=== PATIENT | male | born 1975 | race Caucasian/White ===

== ENCOUNTER 2021-06-03 07:57 | Emergency (ER) | payer OTHER ==
[~2021-06-03] VITALS: Ht 200.7 cm; Wt 115.7 kg
[2021-06-03] MEDS ORDERED: ASPIRIN EC81 M1 PO (08:11)
[2021-06-03] MEDS ORDERED: OMEPRAZOLE 20 M20 M1 PO (08:12)
[2021-06-03] MEDS ORDERED: CEPHALEXIN500 MG PO (08:37)
[2021-06-03] MEDS ORDERED: HYDROCODON-ACE1 EAC7 PO (08:37)
[2021-06-03] MEDS ORDERED: BACTRIM DS TAB1 EACH PO (08:37)
[2021-06-03 08:43] VITALS: BP 139/83
== END 2021-06-03 08:44 | disposition home or self-care (01) ==
LOC: M.ERS 07:57
DX: L03.011 Cellulitis of right finger (principal); K21.9 Gastro-esophageal reflux disease without esophagitis; Z79.82 Long term (current) use of aspirin; Z79.899 Other long term (current) drug therapy; Z88.1 Allergy status to other antibiotic agents; Z88.0 Allergy status to penicillin